=== PATIENT | male | born 1955 | race Caucasian/White ===

== ENCOUNTER → 2016-09-29 | Outpatient (CLI) | payer BC | LOC: RAD 15:33 | DX: R06.02 Shortness of breath (principal); R05 Cough ==

== ENCOUNTER → 2017-08-26 | Outpatient (CLI) | payer BC ==
[2017-08-26 08:48] LABS: ALBUMIN 4.4 g/dL (3.5-5.0); BUN/CREATININE RATIO 14.3 (6.0-26.0); CALCIUM 9.1 mg/dL (8.4-10.2); POTASSIUM 4.1 mmol/L (3.6-5.0); TOTAL PROTEIN 7.8 g/dL (6.3-8.2)
== END ==
LOC: CARDREHAB 07:38 → LAB 07:38 → PT 08:04
PROVIDERS: Family Medicine
DX: Z00.00 Encounter for general adult medical examination without abnormal findings (principal); Z13.1 Encounter for screening for diabetes mellitus; Z12.12 Encounter for screening for malignant neoplasm of rectum; Z23 Encounter for immunization

== ENCOUNTER → 2017-09-17 | Outpatient (CLI) | payer BC | LOC: LAB 13:28 | DX: Z13.1 Encounter for screening for diabetes mellitus (principal) ==

== ENCOUNTER → 2017-10-04 | Day surgery (SDC) | payer BC | LOC: MSO | DX: Z12.11 Encounter for screening for malignant neoplasm of colon (principal); D12.0 Benign neoplasm of cecum; K63.5 Polyp of colon; K21.9 Gastro-esophageal reflux disease without esophagitis | CPT/HCPCS: 00811; J2704; J3010; J7120 ==

== ENCOUNTER → 2017-12-13 | Outpatient (CLI) | payer BC ==
[2017-12-13 13:03] LABS: EOS # 0.1 (0.04-0.40); EOS % 1.3 % (0.0-4.0); HEMATOCRIT 46.1 % (42.0-52.0); HEMOGLOBIN 16.1 g/dL (13.5-18.0); LYMPH# 1.7 (1.50-4.00); MEAN CELL VOLUME 83 fl (78-100); MEAN CORPUSCULAR HEMOGLOBIN 29 pg (27-31); MEAN CORPUSCULAR HGB CONC 35 g/dL (33-37); MEAN PLATELET VOLUME 9.2 fl (7.4-10.4); MONO # 0.6 (0.20-0.80); NEU # 6.4 (1.40-6.50); PLATELET COUNT 338 K/mm3 (130-400); RED BLOOD COUNT 5.55 M/mm3 (4.20-5.60); RED CELL DISTRIBUTION WIDTH 13.3 % (11.5-14.5); WHITE BLOOD COUNT 8.9 K/mm3 (4.8-10.8)
[2017-12-13 13:14] LABS: BUN/CREATININE RATIO 22.1 (6.0-26.0); CALCIUM 9.2 mg/dL (8.4-10.2); POTASSIUM 4.3 mmol/L (3.6-5.0)
== END ==
LOC: LAB 12:47
PROVIDERS: Family Medicine
DX: R51 Headache (principal); M43.6 Torticollis; R63.4 Abnormal weight loss; R97.20 Elevated prostate specific antigen [PSA]

== ENCOUNTER → 2019-11-01 | Outpatient (CLI) | payer BC ==
[2019-11-01 14:24] LABS: HEMATOCRIT 44.6 % (42.0-52.0); HEMOGLOBIN 15.5 g/dL (13.5-18.0); MEAN PLATELET VOLUME 10.4 fl (7.4-10.4); RED BLOOD COUNT 5.22 M/mm3 (4.20-5.60); RED CELL DISTRIBUTION WIDTH 13.4 % (11.5-14.5); WHITE BLOOD COUNT 7.7 K/mm3 (4.8-10.8)
[2019-11-01 14:38] LABS: ALBUMIN 4.4 g/dL (3.4-4.8)
[2019-11-01 14:39] LABS: POTASSIUM 4.4 mmol/L (3.5-5.1)
[2019-11-01 14:40] LABS: CALCIUM 8.8 mg/dL (8.3-10.5)
[2019-11-01 14:41] LABS: TOTAL PROTEIN 7.9 g/dL (6.2-8.1)
[2019-11-01 14:42] LABS: PH-URINE 6.5 (5.0 - 8.0); URINE APPEARANCE CLEAR; URINE BILIRUBIN NEGATIVE (NEGATIVE); URINE BLOOD NEGATIVE (NEGATIVE); URINE COLOR YELLOW; URINE GLUCOSE NEGATIVE (NEGATIVE); URINE KETONE NEGATIVE (NEGATIVE); URINE LEUKOCYTE ESTERASE NEGATIVE (NEGATIVE); URINE NITRATE NEGATIVE (NEGATIVE); URINE PROTEIN(semi-quant) TRACE mg/dL (NEGATIVE); URINE UROBILINOGEN NORMAL (NORMAL)
[2019-11-01 14:43] LABS: TOTAL BILIRUBIN 0.9 mg/dL (0.2-1.2); URINE MUCUS PRESENT (NOT PRESENT)
== END ==
LOC: LAB 14:01 → AMSURD 14:01
PROVIDERS: Family Medicine
DX: M70.22 Olecranon bursitis, left elbow (principal); I10 Essential (primary) hypertension

== ENCOUNTER → 2021-05-01 | Outpatient (CLI) | payer BC ==
[2021-05-01 12:57] LABS: ALBUMIN 4.1 g/dL (3.4-4.8); POTASSIUM 4.5 mmol/L (3.5-5.1)
[2021-05-01 12:58] LABS: CALCIUM 8.9 mg/dL (8.3-10.5)
[2021-05-01 12:59] LABS: TOTAL PROTEIN 7.3 g/dL (6.2-8.1)
[2021-05-01 13:01] LABS: TOTAL BILIRUBIN 0.8 mg/dL (0.2-1.2)
== END ==
LOC: LAB 12:27
PROVIDERS: Family Medicine
DX: Z13.1 Encounter for screening for diabetes mellitus (principal); Z12.5 Encounter for screening for malignant neoplasm of prostate; Z13.220 Encounter for screening for lipoid disorders; I10 Essential (primary) hypertension

== ENCOUNTER → 2022-05-11 | Outpatient (CLI) | payer OTHER ==
[2022-05-11 14:55] LABS: ALBUMIN 4.1 g/dL (3.4-4.8); POTASSIUM 4.3 mmol/L (3.5-5.1)
[2022-05-11 14:56] LABS: CALCIUM 9.4 mg/dL (8.3-10.5)
[2022-05-11 14:58] LABS: TOTAL PROTEIN 7.5 g/dL (6.2-8.1)
[2022-05-11 14:59] LABS: TOTAL BILIRUBIN 1.7 mg/dL (0.2-1.2)
[2022-05-11 15:02] LABS: HEMATOCRIT 25.4 % (42.0-52.0); HEMOGLOBIN 8.6 g/dL (13.5-18.0); MEAN CELL VOLUME 82 fl (78-100); MEAN CORPUSCULAR HEMOGLOBIN 28 pg (27-31); MEAN CORPUSCULAR HGB CONC 34 g/dL (33-37); PLATELET COUNT 52 K/mm3 (130-400); RED CELL DISTRIBUTION WIDTH 15.4 % (11.5-14.5); WHITE BLOOD COUNT 2.3 K/mm3 (4.8-10.8)
[2022-05-11 16:20] LABS: LYMPHOCYTE 56 % (20-51); MONOCYTE 11 % (3-10); NEUTROPHILS 32 % (42-75)
[2022-05-11 16:22] LABS: HYPOCHROMIA 1+; MICROCYTOSIS 1+
[2022-05-11 16:23] LABS: OVALOCYTES 1+
[2022-05-13 09:40] LABS: DIRECT BILIRUBIN 0.5 mg/dL (0.0-0.5)
== END ==
LOC: LAB 14:36
PROVIDERS: Family Medicine
DX: U09.9 Post COVID-19 condition, unspecified (principal); R05.2 Subacute cough; R53.83 Other fatigue

== ENCOUNTER → 2022-05-13 | Outpatient (CLI) | payer OTHER ==
[2022-05-13 14:27] LABS: HEMATOCRIT 23.8 % (42.0-52.0); MEAN CELL VOLUME 82 fl (78-100); MEAN CORPUSCULAR HEMOGLOBIN 28 pg (27-31); MEAN CORPUSCULAR HGB CONC 34 g/dL (33-37); MEAN PLATELET VOLUME 8.9 fl (7.4-10.4); RED BLOOD COUNT 2.91 M/mm3 (4.20-5.60); RED CELL DISTRIBUTION WIDTH 15.5 % (11.5-14.5); WHITE BLOOD COUNT 2.3 K/mm3 (4.8-10.8)
[2022-05-13 14:45] LABS: PLATELET COUNT 42 K/mm3 (130-400)
[2022-05-13 15:15] LABS: LYMPHOCYTE 50 % (20-51); MONOCYTE 13 % (3-10); NEUTROPHILS 37 % (42-75)
== END ==
LOC: LAB 14:10
PROVIDERS: Family Medicine
DX: E80.6 Other disorders of bilirubin metabolism (principal); D61.818 Other pancytopenia

== ENCOUNTER → 2022-05-15 | Outpatient (CLI) | payer OTHER | LOC: RAD 13:00 | DX: E04.9 Nontoxic goiter, unspecified (principal) ==

== ENCOUNTER 2022-06-02 15:51 | Observation (INO) | payer OTHER ==
[~2022-06-02] VITALS: Ht 180.3 cm; Wt 79.0 kg
[2022-06-02] MEDS ORDERED: LISINOPRIL10 MG PO (16:04)
[2022-06-02 16:52] LABS: LIPASE 12 U/L (8-78)
[2022-06-02 17:14] LABS: TROPONIN-I < 0.030 ng/mL (<0.030)
[2022-06-02 18:07] LABS: URINE APPEARANCE CLEAR; URINE COLOR YELLOW
[2022-06-02 18:08] LABS: URINE BILIRUBIN NEGATIVE (NEGATIVE); URINE BLOOD NEGATIVE (NEGATIVE); URINE GLUCOSE NEGATIVE (NEGATIVE); URINE KETONE NEGATIVE (NEGATIVE); URINE LEUKOCYTE ESTERASE NEGATIVE (NEGATIVE); URINE MUCUS PRESENT (NOT PRESENT); URINE NITRATE NEGATIVE (NEGATIVE); URINE PROTEIN(semi-quant) TRACE (NEGATIVE); URINE UROBILINOGEN 1 mg/dL (NORMAL); URINE WBC 0-1 /hpf (0-3)
[2022-06-02 21:00] VITALS: BP 114/63
[2022-06-02 21:34] VITALS: BP 147/88
[2022-06-02 21:39] VITALS: BP 107/60
[2022-06-02 22:00] VITALS: BP 110/62
[2022-06-02 23:00] VITALS: BP 112/59
[2022-06-02 23:30] VITALS: BP 106/66
[2022-06-03] VITALS (10 sets, daily range): BP systolic 92–114; BP diastolic 50–71
[2022-06-03 06:50] LABS: ALBUMIN 3.4 g/dL (3.4-4.8)
[2022-06-03 06:51] LABS: HEMATOCRIT 23.4 % (42.0-52.0); HEMOGLOBIN 7.8 g/dL (13.5-18.0); MEAN CELL VOLUME 85 fl (78-100); MEAN CORPUSCULAR HEMOGLOBIN 28 pg (27-31); MEAN CORPUSCULAR HGB CONC 33 g/dL (33-37); RED BLOOD COUNT 2.77 M/mm3 (4.20-5.60); RED CELL DISTRIBUTION WIDTH 17.7 % (11.5-14.5)
[2022-06-03 06:52] LABS: CALCIUM 8.3 mg/dL (8.3-10.5)
[2022-06-03 06:53] LABS: TOTAL PROTEIN 6.3 g/dL (6.2-8.1)
[2022-06-03 06:55] LABS: TOTAL BILIRUBIN 3.1 mg/dL (0.2-1.2)
[2022-06-03 07:02] LABS: PLATELET COUNT 33 K/mm3 (130-400)
[2022-06-03 07:21] LABS: BAND 1 % (0-10); LYMPHOCYTE 51 % (20-51); MONOCYTE 9 % (3-10); NEUTROPHILS 38 % (42-75); NUCLEATED RED BLOOD CELL 4 (0-6)
[2022-06-03 07:22] LABS: OVALOCYTES 1+; POLYCHROMASIA 1+
[2022-06-03 07:23] LABS: HYPOCHROMIA 1+; MICROCYTOSIS 1+
[2022-06-03 08:08] LABS: PROTHROMBIN TIME 11.2 SECONDS (9.0-12.0)
[2022-06-03] MEDS ORDERED: BENZONATATE200 MG PO (11:49)
[2022-06-03] MEDS ORDERED: PANTOPRAZOLE SO40 MG PO (11:49)
== END 2022-06-03 12:30 | disposition home or self-care (01) ==
LOC: ED 15:51 → MED/SURG 18:43
PROVIDERS: Family Medicine; ADMIT Physician Assistant
DX: D61.818 Other pancytopenia (principal); K76.9 Liver disease, unspecified; R53.83 Other fatigue; N40.0 Benign prostatic hyperplasia without lower urinary tract symptoms; Z86.16 Personal history of COVID-19; Z28.310 Unvaccinated for COVID-19; Z28.9 Immunization not carried out for unspecified reason
CPT/HCPCS: C9113; G0378; J7030; Q9967

== ENCOUNTER → 2022-06-02 | Outpatient (CLI) | payer OTHER ==
[~2022-06-02] MED LIST: BENZONATATE200 MG PO; LISINOPRIL10 MG PO; PANTOPRAZOLE SO40 MG PO
[2022-06-02 15:57] LABS: POTASSIUM 4.4 mmol/L (3.5-5.1)
[2022-06-02 15:58] LABS: CALCIUM 9.1 mg/dL (8.3-10.5); HEMATOCRIT 19.9 % (42.0-52.0); MEAN CELL VOLUME 84 fl (78-100); MEAN CORPUSCULAR HEMOGLOBIN 28 pg (27-31); MEAN CORPUSCULAR HGB CONC 33 g/dL (33-37); RED BLOOD COUNT 2.36 M/mm3 (4.20-5.60); RED CELL DISTRIBUTION WIDTH 19.3 % (11.5-14.5); WHITE BLOOD COUNT 3.1 K/mm3 (4.8-10.8)
[2022-06-02 15:59] LABS: TOTAL PROTEIN 7.3 g/dL (6.2-8.1)
[2022-06-02 16:01] LABS: TOTAL BILIRUBIN 3.4 mg/dL (0.2-1.2)
[2022-06-02 16:08] LABS: HEMOGLOBIN 6.6 g/dL (13.5-18.0); PLATELET COUNT 33 K/mm3 (130-400)
[2022-06-02 16:22] LABS: BAND 4 % (0-10); LYMPHOCYTE 42 % (20-51); MONOCYTE 10 % (3-10); NEUTROPHILS 42 % (42-75); NUCLEATED RED BLOOD CELL 4 (0-6)
[2022-06-02 16:23] LABS: HYPOCHROMIA 1+; POLYCHROMASIA 1+
[2022-06-02 16:24] LABS: MICROCYTOSIS 1+; OVALOCYTES 1+; TEAR DROP CELLS 1+
== END ==
LOC: LAB 15:02
PROVIDERS: Internal Medicine Medical Oncology
DX: D61.818 Other pancytopenia (principal)

== ENCOUNTER → 2023-12-30 | Outpatient (CLI) | payer MEDICARE | LOC: RAD 15:09 | DX: R07.89 Other chest pain (principal) ==